=== PATIENT | female | born 1970 | race Caucasian/White ===

== ENCOUNTER 2017-11-03 13:10 | Outpatient (CLI) | payer OTHER ==
[~2017-11-03] VITALS: Ht 152.4 cm; Wt 45.4 kg
== END 2017-11-03 13:30 | disposition home or self-care (01) ==
LOC: OFIC 805 13:10
DX: H61.23 Impacted cerumen, bilateral (principal); H90.3 Sensorineural hearing loss, bilateral

== ENCOUNTER 2018-08-31 12:35 | Outpatient (CLI) | payer OTHER | END 2018-08-31 12:50 | disposition home or self-care (01) | LOC: LAB 12:35 | DX: D64.89 Other specified anemias (principal); E78.2 Mixed hyperlipidemia; E16.1 Other hypoglycemia; E03.8 Other specified hypothyroidism; N39.0 Urinary tract infection, site not specified; E55.0 Rickets, active; N91.1 Secondary amenorrhea; Z11.4 Encounter for screening for human immunodeficiency virus [HIV]; A60.00 Herpesviral infection of urogenital system, unspecified; A64 Unspecified sexually transmitted disease ==

== ENCOUNTER 2018-09-04 04:30 | Day surgery (SDC) | payer OTHER | END 2018-09-04 09:30 | disposition home or self-care (01) | LOC: AMB-ENDOS 04:30 | DX: K57.32 Diverticulitis of large intestine without perforation or abscess without bleeding (principal); K64.1 Second degree hemorrhoids ==

== ENCOUNTER 2018-11-09 09:42 | Outpatient (CLI) | payer OTHER ==
[~2018-11-09] VITALS: Ht 152.4 cm; Wt 49.9 kg
== END 2018-11-09 10:00 | disposition home or self-care (01) ==
LOC: OFIC 805 09:42
DX: H92.02 Otalgia, left ear (principal); H73.892 Other specified disorders of tympanic membrane, left ear; H93.12 Tinnitus, left ear